=== PATIENT | female | born 1945 | race Caucasian/White ===

== ENCOUNTER → 2017-08-20 | Outpatient (CLI) | payer OTHER ==
[~2017-08-20] MED LIST: ALTACE10 MG PO; ASPIR 8181 MG PO; ATORVASTATIN CA40 MG PO; ATORVASTATIN CA80 MG; CENTRUM SILVER1 EAC4 PO; COLACE100 MG PO; DETROL2 M1 PO; EFFIENT10 MG PO; LASIX 40 MG TAB40 M2 PO; LISINOPRIL5 MG; LOPRESSOR25 PO; NORCO 5-325 TA1 EACH PO; OXYBUTYNIN 5 MG5 M2; OXYBUTYNIN 5 MG5 M2 PO; OXYTROL FOR WO1 EACH; PACERONE 200 M200 M1 PO; PLAVIX; PREDNISONE 20 M20 M1 PO; PROTONIX 20 MG20 M1 PO; TYLENOL325 MG PO; VITAMIN D2000 UNIT PO; ZPAK PO
--- NOTE | 2017-08-22 12:13 | S ---
[place] [address] SURGICAL PATH RPT PROCEDURE Name: IMELDA THOMAS Room: [facility]#: [id number] Admission: 08/20/17 Date of : 45 Discharge: Report #: [id number] Path Case #: [id number] PATHOLOGY REPORT COLLECTION DATE: 08/20/2017 RECEIVED DATE: 08/20/2017 SUBMITTING PHYS: Dr. Yohan Cardozo OTHER PHYS: Dr. Clair Logan SPECIMEN(S) RECEIVED: A.Right breast bx * * * * * * * * * * * * FINAL DIAGNOSIS: Right breast mass, 1:00, 6 cm from nipple, image guided biopsy: - Benign breast tissue with organizing hematoma and coarse lumenal calcifications, negative for atypia. See comment. COMMENT: Reviewed with Dr. Aaron Hinkle, who agrees with the diagnosis. (ONEL:david; 08/21/2017) PATHOLOGIST: Juan Osullivan M.D. REPORT ELECTRONICALLY SIGNED BY: Juan Osullivan M.D. DATE/TIME: 08/22/2017 12:12 * * * * * * * * * * * * GROSS PATHOLOGY: Received in formalin labeled "Imelda Thomas, right breast BX 1:00, 6 cm from nipple" and consists of a few soft, yellow, orange, and hemorrhagic tissue cores/fragments measuring 2.5 x 2.0 x 0.4 cm and aggregate. The cold ischemic time is 7 minutes. The formalin fixation time is approximately 11 hours. The specimen is entirely submitted A1-A3. (GUNJAN; 08/20/2017) CLINICAL HISTORY: Right breast mass, 1:00, 6 cm from nipple, 0.77 x 0.53 x 0.47. INITIAL CPT CODE(S): A; 56017 Professional services performed by [facility] at [facility], [address] [place] [id number]. Technical services performed by [facility] at [address] [place] [address], [facility] [address] [address]. [place] [address] SURGICAL PATH RPT PROCEDURE Name: IMELDA THOMAS Room: [facility] Johnston#: [id number] Admission: 08/20/17 Date of : 45 Discharge: Report #: [id number] Path Case #: [id number] [facility] [address] [address] PHONE: [phone] DIRECTOR: Oswald Padgett M.D. * * * END OF REPORT * * *
== END | disposition home or self-care (01) ==
LOC: M.ULTRA 08:02
DX: N64.89 Other specified disorders of breast (principal); I25.2 Old myocardial infarction; Z88.8 Allergy status to other drugs, medicaments and biological substances; Z79.82 Long term (current) use of aspirin

== ENCOUNTER 2017-08-23 16:39 | Emergency (ER) | payer OTHER ==
[~2017-08-23] VITALS: Ht 162.6 cm; Wt 53.5 kg
[~2017-08-23 16:39] MED LIST changes: -CENTRUM SILVER1 EAC4 PO
[2017-08-23] MEDS ORDERED: CENTRUM SILVER1 EAC4 PO (16:51)
[2017-08-23 17:47] VITALS: BP 178/83
== END 2017-08-23 17:48 | disposition home or self-care (01) ==
LOC: M.ERS 16:39
DX: S61.012A Laceration without foreign body of left thumb without damage to nail, initial encounter (principal); I10 Essential (primary) hypertension; K21.9 Gastro-esophageal reflux disease without esophagitis; F17.200 Nicotine dependence, unspecified, uncomplicated; Z90.711 Acquired absence of uterus with remaining cervical stump; Z88.8 Allergy status to other drugs, medicaments and biological substances; W26.0XXA Contact with knife, initial encounter; Y93.89 Activity, other specified; Y92.89 Other specified places as the place of occurrence of the external cause; Y99.8 Other external cause status

== ENCOUNTER → 2018-04-25 | Outpatient (CLI) | payer OTHER ==
[~2018-04-25] MED LIST changes: +CENTRUM SILVER1 EAC4 PO
== END ==
LOC: M.RAD 08:27
DX: M81.0 Age-related osteoporosis without current pathological fracture (principal); M85.89 Other specified disorders of bone density and structure, multiple sites; I10 Essential (primary) hypertension; K21.9 Gastro-esophageal reflux disease without esophagitis; Z78.0 Asymptomatic menopausal state

== ENCOUNTER → 2018-12-11 | Outpatient (CLI) | payer OTHER ==
--- NOTE | 2018-12-11 16:57 | CARDNUC ---
[place] [address] CARDIAC NUCLEAR IMAGING REPORT Name: OLEGARIO BARRETT Room: [facility]#: [id number] Admission: 12/11/18 Attend Phys: Gaston Polanco, Discharge: Date of : 45 Date of Service: 12/11/18 1656 Report #: [id number] THIS REPORT FOR: //name// APPROVED REPORT Study performed: 12/11/2018 09:27:41 Exam: Nuclear Stress Test Indication: Chest pain Patient Location: Out-Patient Stress Tech: Kala Allan Stress Nurse: Renetta Rodríguez RN NM Tech:JOHNATHAN Malik Ht: 5 ft 4 in Wt: 115 lbs BSA: 1.55 m2 BMI: 19.73 Medical History Medical History: Angina, CAD s/p DC, CAD s/p stent, HTN, Hyperlipidemia, Smoking. Medications: Lisinopril, Metoprolol, Atorvastatin, ASA 81 Mg. Allergies: Lidocaine, Milk Protein, Pravastatin, Varenicline. Cardiac Risk Factors: Age, Current Smoker, FHX of CAD, HTN, Hyperlipidemia. Previous Cardiac Procedures: Myocardial infarction, PCI. Pretest Chest Pain Characteristics: No chest pain Exercise History: Indeterminate Physical Disabilities: Generalized weakness/Fatigue. Meds Held (24 hrs): Metoprolol. Stress Test Details Stress Test: Pharmacologic stress was paired with low level exercise. Reason for pharmacologic stress test: physical limitation.. HR Resting HR: 55 bpm Max Heart Rate (APMHR): 147 bpm Max HR Achieved: 130 bpm Target HR (85% APMHR): 124 bpm % of APMHR: 88 Recovery HR: 78 bpm BP Resting BP: 174/89 mmHg Max BP: 190/81 [place] [address] CARDIAC NUCLEAR IMAGING REPORT Name: OLEGARIO BARRETT Room: [facility]#: [id number] Admission: 12/11/18 Attend Phys: Gaston Polanco, Discharge: Date of : 45 Date of Service: 12/11/18 1656 Report #: [id number] ECG Resting ECG: Sinus Rhythm Stress ECG: Sinus Tachycardia ST Change: None Arrhythmia: None Recovery ECG: Sinus Rhythm Recovery ST Change: None Recovery Arrhythmia: None Clinical Reason for Termination: Completed protocol Stress Symptoms: Dyspnea Exercise duration: 4 min 00 sec Exercise capacity: 2.07 METs The patient tolerated walking Lexiscan infusion without significant cardiac symptoms. Nurse Comments 73 year old female presented with HX of CP radiating into neck. Patient tolerated walking Lexiscan with SOA reported. Recovery unremarkable with PO caffeine. Patient escorted by staff to Nuclear Medicine for images. Patient stable with no complaints at that time. Stress ECG Conclusion The baseline 12-lead EKG shows sinus rhythm without significant ST or T wave abnormality. EKGs obtained during and post walking Lexiscan perfusion show sinus rhythm and sinus tachycardia with no significant ST or T wave changes when compared to baseline. There were no stress-induced arrhythmias. NM EXAM: Myocardial Perfusion REST/STRESS Imaging Protocol: Rest Tc-99m/Stress Tc-99m 1 day Resting Data Rest SPECT myocardial perfusion imaging was performed in supine position 30 minutes following the intravenous injection of 10.3 mCi of Tc-99m Sestamibi. Time of rest injection: 814 Date: 12/11/2018 The images were gated to evaluate regional wall motion and calculate left ventricular ejection fraction. Administration Route: IV Administration Site: Right [place] [address] CARDIAC NUCLEAR IMAGING REPORT Name: OLEGARIO BARRETT Room: [facility]#: [id number] Admission: 12/11/18 Attend Phys: Gaston Polanco, Discharge: Date of : 45 Date of Service: 12/11/18 1656 Report #: [id number] Pharmacologic stress test was performed by injecting Regadenoson 0.4 mg IV push followed by the intravenous injection of 35.6 mCi of Tc-99m Sestamibi. Time of stress injection: 929 Date: 12/11/2018 Administration Route: IV Administration Site: Right AC Gated Stress SPECT was performed 40 minutes after stress injection. The images were gated to evaluate regional wall motion and calculate left ventricular ejection fraction. Prone imaging was performed. Study Quality Study: Fair Artifact: Moderate Breast artifact Study Data At rest, the left ventricular ejection fraction was 64%.. Post stress, the left ventricular ejection was 61%.. TID = 0.94. Perfusion Perfusion images obtained at rest show significant photopenia involving the mid to apical lateral inferolateral wall. Perfusion images obtained in the supine position post stress show a similar less pronounced pattern that is even less pronounced on post stress prone imaging. Wall motion in this region appears normal suggesting breast attenuation artifact. There were no reversible defects to suggest ischemia. Wall Motion Normal left ventricular wall motion. Nuclear Conclusion ECG Findings: negative for ischemia Clinical Findings: negative for ischemia Nuclear Findings: negative for ischemia Exercise Capacity: not assessed Left Ventricular Function: normal There were no reversible defects to suggest ischemia. There were fixed defects in the mid to apical lateral and inferolateral wall with underlying normal wall motion in this region suggesting breast attenuation artifact. Left ventricular systolic function is normal on gated studies. This is not a high risk study. <Conclusion> [place] [address] CARDIAC NUCLEAR IMAGING REPORT Name: NENAOLEGARIO AXEL Room: [facility]#: [id number] Admission: 12/11/18 Attend Phys: Gaston Polanco, Discharge: Date of : 45 Date of Service: 12/11/18 1656 Report #: [id number] The baseline 12-lead EKG shows sinus rhythm without significant ST or T wave abnormality. EKGs obtained during and post walking Lexiscan perfusion show sinus rhythm and sinus tachycardia with no significant ST or T wave changes when compared to baseline. There were no stress-induced arrhythmias. <ELECTRONICALLY SIGNED> By: Gaston Polanco MD, FACC 12/11/18 1656 55 55 Gaston Polanco MD, FACC /INF
== END ==
LOC: M.NUC 11-13 14:32
DX: I25.10 Atherosclerotic heart disease of native coronary artery without angina pectoris (principal); I10 Essential (primary) hypertension; E78.5 Hyperlipidemia, unspecified; F17.200 Nicotine dependence, unspecified, uncomplicated; Z88.8 Allergy status to other drugs, medicaments and biological substances; Z91.011 Allergy to milk products; Z79.899 Other long term (current) drug therapy; Z82.49 Family history of ischemic heart disease and other diseases of the circulatory system

== ENCOUNTER 2019-01-19 13:14 | Emergency (ER) | payer OTHER ==
[~2019-01-19] VITALS: Ht 165.1 cm; Wt 51.3 kg
[~2019-01-19 13:14] MED LIST changes: -LISINOPRIL5 MG; +LISINOPRIL5 MG PO
[2019-01-19] MEDS ORDERED: COLACE 100 MG100 MG PO (13:46)
[2019-01-19] MEDS ORDERED: TRAMADOL 50 MG50 MG PO (13:46)
[2019-01-19 13:57] VITALS: BP 176/66
== END 2019-01-19 13:59 | disposition home or self-care (01) ==
LOC: M.ERS 13:14
DX: K40.90 Unilateral inguinal hernia, without obstruction or gangrene, not specified as recurrent (principal); I10 Essential (primary) hypertension; K21.9 Gastro-esophageal reflux disease without esophagitis; Z88.8 Allergy status to other drugs, medicaments and biological substances; Z90.711 Acquired absence of uterus with remaining cervical stump

== ENCOUNTER → 2019-02-03 | Day surgery (SDC) | payer OTHER ==
[~2019-02-03] MED LIST changes: +COLACE 100 MG100 MG PO; +NORCO 5-325 TA1 EAC1 PO; +TRAMADOL 50 MG50 MG PO
[2019-02-03 10:00] LABS: HEMATOCRIT 45.5 % (37.0-47.0); HEMOGLOBIN 15.3 gm/dL (12.0-15.0); MCH 31.5 pg (26.0-34.0); MCHC 33.7 g/dL (28.0-37.0); MCV 93.3 fL (80.0-100.0); MPV 9.5 fl. (7.2-11.1); RBC 4.88 mil/uL (4.20-5.00); RDW-CV 13.3 % (10.5-14.5); WBC 9.7 thou/uL (4.0-11.0)
[2019-02-03 10:20] LABS: CALCIUM 9.5 mg/dL (8.5-10.1); CREATININE 0.7 mg/dL (0.6-1.3); POTASSIUM 4.5 mmol/L (3.5-5.1)
--- NOTE | 2019-02-03 11:06 | EKG ---
[place] [address] ELECTROCARDIOGRAM REPORT Name: OLEGARIO BARRETT Room: [facility]#: [id number] Admission: 02/03/19 Attend Phys: Nima Cuellar DO Discharge: Date of : 45 Report #: [id number] THIS REPORT FOR: //name// 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 02/03/19 [phone] Shaji Ford MD, FACC /EPI
--- NOTE | 2019-03-04 08:54 | OP ---
[address] [address] OPERATIVE REPORT Name: OLEGARIO BARRETT Room: [facility]#: [id number] Admission: 02/03/19 Attend Phys: Nima Cuellar DO Discharge: Date of : 45 Report #: [id number] THIS REPORT FOR: //name// CC: Nima Tolbert DATE OF SERVICE: 02/03/2019 PREOPERATIVE DIAGNOSIS: Left inguinal hernia. POSTOPERATIVE DIAGNOSIS: Left inguinal hernia, indirect. PROCEDURE: Da Trish robotic-assisted laparoscopic left inguinal hernia repair with mesh. SURGEON: Nima Cuellar DO. COTTRELL OPERATOR: Dr. Uriel Coyle DO, PGY3, resident. SECOND TOOL ROOM SUPERVISOR: Dr. Barrington Quesada DO, PGY3, resident. ANESTHESIA: General endotracheal. ESTIMATED BLOOD LOSS: Less than 20 mL. COMPLICATIONS: None. REFERRING PHYSICIAN: Dr. Clair Logan. DESCRIPTION OF PROCEDURE: After obtaining proper consents and discussing risks and complications with the patient, she was taken to the operating room and laid in the supine position, administered general endotracheal anesthetic. She was then prepped and draped in the usual sterile fashion. Timeout was performed. We confirmed the appropriate patient and procedure. Preoperative antibiotics had been given. SCDs were in place. We then made a small supraumbilical skin incision with a #11 scalpel blade. This was carried down through the skin and the subcutaneous tissue using electrocautery for hemostasis. Once the fascia was encountered, it was incised along the midline, grasped and elevated with Ginna clamps and divided further. The peritoneum was then bluntly opened using a hemostat. We then placed 2-0 Vicryl sutures in a taqafh-za-[id number] fashion to secure the Delroy trocar, which was then inserted and insufflation was begun. Once insufflation was complete, full visual inspection of the anterior abdominal organs was performed. This revealed a left indirect inguinal hernia. There was no right indirect inguinal hernia. We also looked up at the diaphragm as the patient had had a previous hiatal hernia repair. [place] [address] OPERATIVE REPORT Name: OLEGARIO BARRETT Room: [facility].#: [id number] Admission: 02/03/19 Attend Phys: Nima Cuellar DO Discharge: Date of : 45 Report #: [id number] abnormalities identified there. We then placed two more 8.5 mm da Trish ports, one in the right upper quadrant, one in the left upper quadrant. We then docked the da Trish robot. We then placed monopolar scissors in the right upper quadrant, bipolar fenestrated grasper in the left upper quadrant. I then broke scrub and went on console. Once on console, I identified ASIS on the patient's left side. I then made an opening in the peritoneum from the median umbilical ligament laterally to the ASIS. I then bluntly opened the preperitoneal space and dissected the indirect inguinal hernia sac free from the round ligament. Once the preperitoneal space was developed all the way medially down below the pubic ramus and laterally out to the ASIS, I then placed a medium Bard 3DMax mesh. This was opened in its entirety in the preperitoneal space and then sutured to Colton's ligament using 2-0 Vicryl suture. I also sutured the mesh medial and lateral to the inferior epigastric vessels using 2-0 Vicryl suture. We then closed the peritoneal flap using a running 2-0 absorbable V-Loc suture. We then removed all of the needles. I then rescrubbed and went back to the patient's bedside where we undocked the da Trish robot. The trocars were all removed. PMI closure device was used to close the right and left upper quadrant trocar sites with 0 Vicryl suture. We then closed the umbilical fascia using the 2 previously placed 0 Vicryl sutures plus 2 additional 0 Vicryl sutures. Skin incisions were all closed using 4-0 Monocryl subcuticular stitches. Mastisol, Steri-Strips, sterile OpSite and pressure dressings were placed. The patient was awakened in the operating room and transported to recovery room in stable condition. <ELECTRONICALLY SIGNED> By: Nima Cuellar DO 03/04/19 0854 1248 1334Aelinor Cuellar DO /nt
== END | disposition home or self-care (01) ==
LOC: M.SUR 06:32
PROVIDERS: Surgery
DX: K40.90 Unilateral inguinal hernia, without obstruction or gangrene, not specified as recurrent (principal); I10 Essential (primary) hypertension; I25.2 Old myocardial infarction; K21.9 Gastro-esophageal reflux disease without esophagitis; Z88.8 Allergy status to other drugs, medicaments and biological substances; Z79.82 Long term (current) use of aspirin; Z79.899 Other long term (current) drug therapy; Z98.890 Other specified postprocedural states; Z90.711 Acquired absence of uterus with remaining cervical stump

== ENCOUNTER 2019-04-11 07:30 | Observation (INO) | payer OTHER ==
[~2019-04-11] VITALS: Ht 162.6 cm; Wt 49.9 kg
[2019-04-11] VITALS (14 sets, daily range): BP systolic 141–180; BP diastolic 60–84
--- NOTE | ~2019-04-11 | H ---
[address] [address] HISTORY AND PHYSICAL Name: OLEGAIRO BARRETT Room: [address] Angel Johnston#: [id number] Admission: 04/11/19 Attend Phys: Kodak Lind MD, Discharge: 04/12/19 Date of : 45 Report #: [id number] THIS REPORT FOR: //name// Please refer to the History and Physical performed in the physician's office. By: 0635Medical Records Staff RADHA /TEODORO
[~2019-04-11 07:30] MED LIST changes: -ATORVASTATIN CA80 MG; +ATORVASTATIN CA80 MG PO; -OXYBUTYNIN 5 MG5 M2
[2019-04-11 08:32] LABS: HEMATOCRIT 42.3 % (37.0-47.0); HEMOGLOBIN 14.6 gm/dL (12.0-15.0); MCH 31.9 pg (26.0-34.0); MCHC 34.5 g/dL (28.0-37.0); MCV 92.4 fL (80.0-100.0); MPV 9.7 fl. (7.2-11.1); RBC 4.58 mil/uL (4.20-5.00); RDW-CV 13.4 % (10.5-14.5); WBC 8.3 thou/uL (4.0-11.0)
[2019-04-11] MEDS ORDERED: XALATAN2.5 ML INTRAOCULR (08:36)
[2019-04-11 08:43] LABS: APTT 24.9 Seconds (25.0-31.3); PROTIME 10.5 Seconds (9.20-11.50)
[2019-04-11 09:08] LABS: ANION GAP 4 mmol/L (7-16); BUN 10 mg/dL (7-18); CALCIUM 9.9 mg/dL (8.5-10.1); CHLORIDE 102 mmol/L (98-107); CO2 32 mmol/L (21-32); CREATININE 0.7 mg/dL (0.6-1.3); GLUCOSE 77 mg/dL (70-99); SODIUM 138 mmol/L (136-145)
[2019-04-11 09:13] LABS: ALBUMIN 3.9 g/dL (3.4-5.0); ALKALINE PHOSPHATASE 121 U/L (46-116); CHOLESTEROL 117 mg/dL (<200); HDL CHOLESTEROL 57 mg/dL (>40); LDL CHOLESTEROL 44 mg/dL (<100); SGOT 43 U/L (15-37); SGPT 47 U/L (30-65); TC:HDL 2.1 Ratio (Not establshd); TOTAL BILIRUBIN 0.6 mg/dL (<0.1-1.0); TOTAL PROTEIN 7.7 g/dL (6.4-8.2); TRIGLYCERIDE 80 mg/dL (<150); VLDL 16 mg/dL (<40)
[2019-04-11 09:14] LABS: SERUM ASSESSMENT Clear
--- NOTE | 2019-04-11 12:35 | EKG ---
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: : 1945 Requested By: Kodak Lind Order Number: [id number] Reading MD: Kodak Lind Measurements Intervals [place] Rate: 48 P: -37 IN: 157 QRS: -8 QRSD: 86 T: QT: 424 QTc: 379 Interpretive Statements Sinus bradycardia Atrial premature complexes in couplets Inferior infarct, old possible Artifact in lead(s) I,II,aVR,aVL,aVF Compared to ECG 02/03/2019 09:56:46 Atrial premature complex(es) now present heart rate has decreased Electronically Signed On 04-11-2019 12:34:49 CDT by Kodak Lind [email or web address] <ELECTRONICALLY SIGNED> By: Kodak Lind MD, [facility] 04/11/19 1234 0843 0843 Kodak Lind MD, [facility] /EPI
--- NOTE | 2019-04-11 12:35 | EKG ---
[place] [address] ELECTROCARDIOGRAM REPORT Name: OLEGARIO BARRETT Room: [address] M.R.#: [id number] Admission: 04/11/19 Attend Phys: Kodak Lind MD, Discharge: Date of : 45 Report #: [id number] THIS REPORT FOR: //name// 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: : 1945 Requested By: Kodak Lind Order Number: [id number] Clementina MD: Kodak Lind Measurements Intervals [place] Rate: 51 P: -18 [place]: 146 QRS: -14 QRSD: 86 T: 54 QT: 433 QTc: 399 Interpretive Statements Sinus rhythm Ventricular premature complex Consider left ventricular hypertrophy Anterior ST elevation, probably due to LVH Compared to ECG 02/03/2019 09:56:46 Ventricular premature complex(es) now present Left ventricular hypertrophy now present ST (T wave) deviation now present Sinus arrhythmia no longer present Atrial abnormality no longer present Electronically Signed On 04-11-2019 12:35:32 CDT by Kodak Lind [email or web address] <ELECTRONICALLY SIGNED> By: Kodak Lind MD, FAC 04/11/19 1235 1152 1152 Kodak Lind MD, FAC /EPI
--- NOTE | 2019-04-11 16:20 | CARD ---
[address] [address] CARDIAC CATH REPORT Name: OLEGARIO BARRETT Room: [address] Angel M.RKaren#: [id number] Admission: 04/11/19 Attend Phys: Kodak Lind MD, Discharge: Date of : 45 Report #: [id number] THIS REPORT FOR: //name// APPROVED REPORT Study performed: 04/11/2019 08:10:00 Patient Details The patient is a 73 year-old female Event Personnel Kodak Lind Product Development Specialist, Winnie Moe Nursing Associate, Zaki Flower CLINICAL INFORMATICS DIRECTOR Scrub, Radha Song RTR Monitor, Yolanda Cuellar RTR Scrub Procedures Performed Art Access - R femoral artery* Left Heart Cath w/or w/o Coronaries [id number] [facility] w/Atherectomy Single LAD [id number] [facility] , Aortogram Indication Unstable angina Risk Factors Hypercholesterolemia, Hypertension Previous Procedures/Diagnoses Previous PCI, Previous MT Admission/Lab Medications/Medications given during procedure Oxygen Nasal cannula 2 l per min, Midazolam (Versed) IV 1 mg, Fentanyl IV 25 mcg, Lidocaine Subcut 16 ml, Angiomax IV bolus 7.5 mg per kg, Angiomax IV gtt 17 ml, Nitroglycerin IC 400 mcg total, Hydralazine (Apresoline) IV 10 mg, Ticagrelor PO 180 mg, Aspirin PO 162 mg Procedure Narrative The patient was brought electively to the Cardiac Catheterization Laboratory and was prepped and draped in a sterile manner. The right femoral was infiltrated with 2% Lidocaine subcutaneous anesthesia. A [place] 6 FR sheath was inserted into the right femoral artery. Coronary angiography was performed using coronary diagnostic catheters. The right coronary system was accessed and visualized with a 6F JR4 catheter. The left coronary system was accessed and visualized with a 6F JL4 catheter. The [place] [address] CARDIAC CATH REPORT Name: OLEGARIO BARRETT AXEL Room: [address] M.R.#: [id number] Admission: 04/11/19 Attend Phys: Kodak Lind MD, Discharge: Date of : 45 Report #: [id number] and visualized with a 6F Pigtail catheter. Left ventricular/Aortic Valve gradient assessed via catheter pullback. Left ventriculogram was performed in ZUÑIGA projection. Pre-demployment femoral angiogram was performed . Closure device was deployed with a 6 Fr Mynx 6Fr/7Fr. The patient tolerated the procedure well and there were no complications associated with the procedure. There was no hematoma. Intraoperative Conscious Sedation Sedation start time: 09:41 Case end Time: 11:12 Fentanyl 25 mcg Versed 1 mg Fluoro Time: 24.4 minutes Dose: DAP [id number] cGycm2 2513 mGy Contrast Type and Amount: Visipaque 520 ml Coronary Angiography The patient's coronary anatomy is left dominant. Diagnostic Cath Left Main 0 Percent narrowing LAD 90% heavily calcified proximal LAD stenosis with 80% calcified mid LAD stenosis and 50% diffuse distal LAD narrowing Circumflex Dominant vessel with 80% mid vessel narrowing and 50% tubular narrowing throughout the posterior descending branch Right Coronary Small nondominant vessel with 90% tubular mid vessel narrowing Left Ventriculography The left ventricle is normal in size with contractility. The left ventricular ejection fraction is estimated to be 55%. Left ventricular wall motion abnormalities are present. There is no mitral insufficiency. Inferoapical hypokinesis is noted IVUS Anticoagulation was achieved with . Angiomax Intravascular Ultrasound was performed on the proximal left anterior descending artery segment vessel. Fractional Flow [place] was performed on the 90 vessel. A 3 Guide Catheter was used to engage the 6FR XB 3.5 100CM ostium. A IG: BMW 190cm was used. Hemodynamics The aortic pressure is 167/56 mmHg with a mean of 96 [place] [address] CARDIAC CATH REPORT Name: OLEGARIO BARRETT Room: [address]#: [id number] Admission: 04/11/19 Attend Phys: Kodak Lind MD, Discharge: Date of : 45 Report #: [id number] ventricular pressure is 163/-2 mmHg with a mean of mmHg. The left ventricular end diastolic pressure is 16 mmHg. There was no gradient across the aortic valve upon pullback. PCI Technique Lesion Anticoagulation was achieved with Angiomax. Patient was preloaded with Angiomax IV 7.5 mg per kg. Percutaneous coronary intervention was performed on the mid left anterior descending artery segment. The lesion stenosis prior to intervention was 80% with ELISEO 3 flow. A 6FR XB 3.5 100CM Guide Catheter was used to engage the ostium. A IG: BMW 190cm Interventional Guidewire was used to cross the lesion. BALLOON DILATION A Balloon catheter NC Trek RX 2.5 X 12 was inserted and inflated up to 16atm for 9seconds. Additional Inflation: 18atm for 9seconds. A Balloon catheter NC Trek RX 2.75 x 8 was inserted and inflated up to 18 jeimy and 22 jeimy. A Balloon catheter NC Trek RX 3.0 x 8 was inserted and inflated up to 17 jeimy and 19 jeimy. STENT DEPLOYMENT A drug-eluting stent 2.5 x 13 Orsiro was inserted and inflated up to 12atm for 9seconds. Additional Inflation: 14atm for 9seconds. POST STENT DEPLOYMENT BALLOON DILATION A Balloon catheter NC Trek RX 2.75 X 8 was inserted and inflated up to 24atm for 9seconds. A Balloon catheter NC Trek RX 3.0 X 8 was inserted and inflated up to 17 jeimy and 18 jeimy. Final angiography reveals 10 % stenosis with ELISEO 3 flow. COMMENTS The PCI was complex by virtue of severe calcification throughout the LAD system requiring significant lesion preparation prior to stent deployment in the proximal and mid LAD segments PCI Technique Lesion Anticoagulation was achieved with Angiomax. Patient was preloaded with Angiomax IV 7.5 mg per kg. Percutaneous coronary intervention was performed on the proximal left anterior descending artery segment. The lesion stenosis prior to intervention was 90% with ELISEO 3 flow. A 6FR XB 3.5 100CM Guide Catheter was used to engage the ostium. A IG: BMW 190cm Interventional Guidewire was used to cross the lesion. BALLOON DILATION [address] [address] CARDIAC CATH REPORT Name: OLEGARIO BARRETT Room: [address] Vickie#: [id number] Admission: 04/11/19 Attend Phys: Kodak Lind MD, Discharge: Date of : 45 Report #: [id number] A Balloon catheter was inserted and inflated up to 20atm for 9seconds. Additional Inflation: 18atm for 9seconds. A balloon catheter NC Trek RX 2.75 x 8 was inserted and inflated up to 22 jeimy. A balloon catheter AngioSculpt PTCA 2.5x 10 was inserted and inflated up to 18 jeimy and 20 jeimy. A balloon catheter NC Trek RX 3.0 X 8 was inserted and inflated up to 18 jeimy. STENT DEPLOYMENT A drug-eluting stent 3.0 x 13 Orsiro was inserted and inflated up to 12atm for 9seconds. Additional Inflation: 14atm for 9seconds. POST STENT DEPLOYMENT BALLOON DILATION A Balloon catheter NC Trek RX 3.0 X 8 was inserted and inflated up to 20atm for 9seconds. Final angiography reveals 0 % stenosis with ELISEO 3 flow. Conclusion #1 severe coronary disease characterized by the following: A 90% heavily calcified proximal and 80% heavily calcified mid LAD stenosis B 80% stenosis of the midportion of the nondominant circumflex with 50% diffuse posterior descending branch narrowing C nondominant right coronary artery with 90% mid vessel narrowing #2 normal global left ventricular systolic function, estimate ejection fraction being 55% with inferoapical hypokinesis #3 mild systemic systolic hypertension with mild elevation of left ventricular end-diastolic pressure at rest #4 successful angioplasty atherotomy/atherectomy and stenting of the proximal LAD with 0% residual narrowing #5 successful angioplasty with stenting of the mid LAD with 10% residual narrowing Recommendations Cardiac Risk Reduction Program Aggressive Medical Therapy Medications Administered [facility] [address] [place] [address] CARDIAC CATH REPORT Name: OLEGARIO BARRETT Room: [address] M.R.#: [id number] Admission: 04/11/19 Attend Phys: Kodak Lind MD, Discharge: Date of : 45 Report #: [id number] Aspirin (any) Ticagrelor Diagnostic Cath Approved by: Kodak Lind MD Date/Time: 04/11/2019 16:15:00 <ELECTRONICALLY SIGNED> By: Kodak Lind MD, FACC 04/11/19 1619 1619 1619Kodak Lind MD, FACC /INF
--- NOTE | 2019-04-11 18:30 | NUR ---
PT A/O. TELE TRACKING SB (40'S-50'S) AND ALL VSS ON ROOM AIR. DENIES CP, SOA. RIGHT GROIN DRESSING CDI, NO HEMATOMA. NEURO VASC WNL. EDUCATED ON SAFETY AND PLAN OF CARE. PLEASE SEE ASSESSMENT FOR ADDITIONAL INFORMATION. WILL CONT TO MONITOR
[2019-04-12] VITALS: BP 170/70
[2019-04-12 04:00] VITALS: BP 199/77
[2019-04-12 05:37] LABS: HEMATOCRIT 37.6 % (37.0-47.0); HEMOGLOBIN 12.8 gm/dL (12.0-15.0); MCH 31.4 pg (26.0-34.0); MCHC 34.1 g/dL (28.0-37.0); MCV 92.1 fL (80.0-100.0); MPV 9.9 fl. (7.2-11.1); RBC 4.08 mil/uL (4.20-5.00); RDW-CV 13.7 % (10.5-14.5)
[2019-04-12 05:51] LABS: ALBUMIN 3.2 g/dL (3.4-5.0); CALCIUM 8.5 mg/dL (8.5-10.1); CREATININE 0.6 mg/dL (0.6-1.3); POTASSIUM 3.6 mmol/L (3.5-5.1); TOTAL BILIRUBIN 0.9 mg/dL (<0.1-1.0); TOTAL PROTEIN 6.3 g/dL (6.4-8.2)
[2019-04-12 05:55] LABS: TROPONIN-I LEVEL 1.94 ng/mL (<0.06)
--- NOTE | 2019-04-12 06:21 | NUR ---
ASSESSMENT CHARTED. PATIENT BP ELEVATED OVER 190. CONTACTED DR. FORBES AND ORDERS RECEIVED FOR BP MEDICATION. ADMINISTERED PER ORDER. PATIENT ANXIOUS TO BE DISCHARGED IN AM.
[2019-04-12 08:00] VITALS: BP 159/75
[2019-04-12 10:42] VITALS: BP 159/75
[2019-04-12] MEDS ORDERED: BRILINTA90 MG PO (11:10)
--- NOTE | 2019-04-12 12:46 | D ---
[address] [address] DISCHARGE SUMMARY Name: OLEGARIO BARRETT Room: [address] Angel Johnston#: [id number] Admission: 04/11/19 Attend Phys: Kodak Lind MD, Discharge: 04/12/19 Date of : 45 Report #: [id number] THIS REPORT FOR: //name// CC: Kodak Polanco FINAL DISCHARGE DIAGNOSES: 1. Unstable angina. 2. Coronary artery disease. 3. Hypertension. 4. Hyperlipidemia. 5. Status post percutaneous coronary intervention to the proximal and mid left anterior descending with atherectomy and stenting of the proximal left anterior descending and stenting of the mid left anterior descending. HOSPITAL COURSE: The patient is a pleasant 73-year-old female with a history of coronary artery disease and prior myocardial infarction and stenting. She presented to my nurse practitioner with increasing angina following an unstable course. In this context, I performed cardiac catheterization on 04/11/2019 which revealed 90% heavily calcified proximal LAD stenosis with 80% calcified mid LAD stenosis. There was 80% mid circumflex narrowing noted as well but the right was nondominant with 90% mid vessel narrowing. I performed atherectomy with stenting of the proximal LAD, deploying one 3.0 x 13 mm Osiro drug-eluting stent there and one 2.5 x 13 Osiro drug-eluting stent in the mid LAD with 0 and 10% residual narrowing following stent deployment and ELISEO 3 flow of the distal vessel. Following atherectomy and stenting, there was a minimal increase in troponin I to 1.94. The patient was comfortable and pain free. She ambulated in the hallways without difficulty and there was good hemostasis at the right femoral site of catheterization. LABORATORY DATA: On 04/12/2019 revealed hemoglobin of 12.8, white blood cell count of 10,000 with 160,000 platelets. Sodium 140, potassium 3.6, BUN 7, creatinine 0.6, glucose 95 mg percent. DISCHARGE MEDICATIONS: The patient was discharged to home on the following medications: Aspirin 81 mg daily, atorvastatin 80 mg daily, cholecalciferol 2000 units daily, Xalatan eyedrops 1 drop at bedtime bilaterally, lisinopril 10 mg b.i.d., metoprolol tartrate 12.5 mg b.i.d., Centrum Silver 1 tablet daily, oxybutynin chloride 5 mg daily, hydrocodone/acetaminophen 1 tablet every 4 hours as needed for musculoskeletal pain, and as noted above, lisinopril increased to 10 mg b.i.d. She is also on ticagrelor or Brilinta 90 mg b.i.d. with 180 mg dose given periprocedurally. The patient is scheduled to return to see my nurse practitioner on 04/21/2019 at 10:30 and she will need stage intervention to the 80% mid circumflex lesion [place] [address] DISCHARGE SUMMARY Name: OLEGARIO BARRETT Room: [address] Angel Johnston#: [id number] Admission: 04/11/19 Attend Phys: Kodak Lind MD, Discharge: 04/12/19 Date of : 45 Report #: [id number] Therefore, the patient is discharged to home in stable condition with followup as iterated above. <ELECTRONICALLY SIGNED> By: Kodak Lind MD, FACC 04/12/19 1246 0955 [id number] Lind MD, FAC /nt
== END 2019-04-12 11:46 | disposition home or self-care (01) ==
LOC: M.CL 07:30 → M.TBA-CV 11:44 → M.2W 15:07
PROVIDERS: ADMIT Internal Medicine
DX: I25.110 Atherosclerotic heart disease of native coronary artery with unstable angina pectoris (principal); I10 Essential (primary) hypertension; E78.5 Hyperlipidemia, unspecified

== ENCOUNTER 2019-05-08 07:23 | Observation (INO) | payer OTHER ==
[2019-05-08] VITALS (12 sets, daily range): BP systolic 142–163; BP diastolic 58–69
[~2019-05-08] VITALS: Ht 162.6 cm; Wt 57.2 kg
--- NOTE | ~2019-05-08 | H ---
[address] [address] HISTORY AND PHYSICAL Name: NENAOLEGARIO AXEL Room: [address] Angel Johnston#: [id number] Admission: 05/08/19 Attend Phys: Kodak Lind MD, Discharge: 05/09/19 Date of : 45 Report #: [id number] THIS REPORT FOR: //name// For History and Physical please refer to the handwritten note in the patient's medical record. By: [facility] Center[facility] Staff RADHA /TEODORO
[~2019-05-08 07:23] MED LIST changes: +BRILINTA90 MG PO; +XALATAN2.5 ML INTRAOCULR
[2019-05-08 08:17] LABS: HEMATOCRIT 41.1 % (37.0-47.0); MCH 31.9 pg (26.0-34.0); MCHC 34.1 g/dL (28.0-37.0); MCV 93.6 fL (80.0-100.0); MPV 9.7 fl. (7.2-11.1); RBC 4.39 mil/uL (4.20-5.00); RDW-CV 13.5 % (10.5-14.5); WBC 7.4 thou/uL (4.0-11.0)
[2019-05-08 08:29] LABS: ANION GAP 8 mmol/L (7-16); BUN 14 mg/dL (7-18); CALCIUM 9.8 mg/dL (8.5-10.1); CHLORIDE 104 mmol/L (98-107); CO2 29 mmol/L (21-32); CREATININE 0.8 mg/dL (0.6-1.3); GLUCOSE 97 mg/dL (70-99); POTASSIUM 3.7 mmol/L (3.5-5.1); SODIUM 141 mmol/L (136-145)
[2019-05-08 08:31] LABS: APTT 24.1 Seconds (25.0-31.3); INR 1.1; PROTIME 10.8 Seconds (9.20-11.50)
[2019-05-08 08:34] LABS: ALBUMIN 3.9 g/dL (3.4-5.0); ALKALINE PHOSPHATASE 104 U/L (46-116); CHOLESTEROL 116 mg/dL (<200); HDL CHOLESTEROL 56 mg/dL (>40); LDL CHOLESTEROL 44 mg/dL (<100); SGOT 42 U/L (15-37); SGPT 46 U/L (30-65); TC:HDL 2.1 Ratio (Not establshd); TOTAL BILIRUBIN 0.7 mg/dL (<0.1-1.0); TOTAL PROTEIN 7.6 g/dL (6.4-8.2); TRIGLYCERIDE 80 mg/dL (<150); VLDL 16 mg/dL (<40)
[2019-05-08 08:36] LABS: SERUM ASSESSMENT Clear
--- NOTE | 2019-05-08 13:25 | EKG ---
[place] [address] ELECTROCARDIOGRAM REPORT Name: OLEGARIO BARRETT Room: [address] M.R.#: [id number] Admission: 05/08/19 Attend Phys: Kodak Lind MD, Discharge: Date of : 45 Report #: [id number] THIS REPORT FOR: //name// [facility] Test Date: 2019-05-08 Test Time: 08:19:30 Pat Name: OLEGARIO BARRETT Department: Room: [facility] Gender: F Care Director: : 1945 Requested By: Kodak Lind Order Number: [id number] Reading MD: Gaston Polanco Measurements Intervals [place] Rate: 46 P: 17 OR: 167 QRS: -14 QRSD: 96 T: 69 QT: 445 QTc: 390 Interpretive Statements Sinus bradycardia Possible anteroseptal infarct, recent Baseline wander in lead(s) I,II,aVR,aVF Nonspecific T-wave flattening Compared to ECG 04/11/2019 11:52:15 Myocardial infarct finding now present Sinus rhythm no longer present Ventricular premature complex(es) no longer present Left ventricular hypertrophy no longer present Electronically Signed On 05-08-2019 13:24:50 CDT by Gaston Polanco [email or web address] <ELECTRONICALLY SIGNED> By: Gaston Polanco MD, FACC 05/08/19 1324 8 8 Gaston Polanco MD, FACC /EPI
--- NOTE | 2019-05-08 16:17 | EKG ---
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 Room: : 1945 Requested By: Kodak Lind Order Number: [id number] Reading MD: Kodak Lind Measurements Intervals [place] Rate: 51 P: 27 ND: 178 QRS: -31 QRSD: 83 T: 73 QT: 470 QTc: 433 Interpretive Statements Sinus rhythm Ventricular premature complex Probable left atrial enlargement Left ventricular hypertrophy Inferior infarct, old Anterior Q waves, possibly due to LVH Compared to ECG 05/08/2019 08:19:30 Ventricular premature complex(es) now present Left ventricular hypertrophy now present Q waves now present Sinus bradycardia persists T-wave abnormality no longer present Myocardial infarct finding still present Electronically Signed On 05-08-2019 16:16:45 CDT by Kodak Lind [email or web address] <ELECTRONICALLY SIGNED> By: Kodak Lind MD, FACC 05/08/19 1616 1215 121 Kodak Lind MD, [facility] /EPI
--- NOTE | 2019-05-08 18:13 | NUR ---
RECIEVED REPORT FROM PASTRY CHEF. [facility] APPROX 1225. POST CATH SITE AND VITALS MONITORED Q15MIN X4, THEN Q1H X4. PT HAS NO VISABLE BLEEDING AT SITE. SITE IS SOFT, NO VISABLE HEMATOMA PRESENT. PT IS ON BEDREST. PT USED THE BEDPAN. PT EDUCATION GIVEN ABOUT POST CATH CARE. PT VERBALIZED UNDERSTANDING. PTS WAS AT BEDSIDE. SAFTEY PRECAUTIONS IN PLACE, HOURLY ROUNDING. CALL LIGHT WITHIN REACH.
--- NOTE | 2019-05-08 21:00 | NUR ---
PT DRESSING AT PROCEDURE SITE (RIGHT GROIN) IS CDI, FREE OF PAIN AND NO DRAINAGE NOTED. WILL CONTINUE TO MONITOR
[2019-05-09] VITALS: BP 154/72
[2019-05-09 03:52] LABS: HEMATOCRIT 36.5 % (37.0-47.0); HEMOGLOBIN 12.4 gm/dL (12.0-15.0); MCH 31.4 pg (26.0-34.0); MCV 92.5 fL (80.0-100.0); MPV 9.6 fl. (7.2-11.1); RBC 3.94 mil/uL (4.20-5.00); RDW-CV 13.8 % (10.5-14.5); WBC 9.1 thou/uL (4.0-11.0)
[2019-05-09 04:00] VITALS: BP 147/68
[2019-05-09 04:02] LABS: ALBUMIN 3.2 g/dL (3.4-5.0); CREATININE 0.6 mg/dL (0.6-1.3); POTASSIUM 3.4 mmol/L (3.5-5.1); TOTAL BILIRUBIN 0.9 mg/dL (<0.1-1.0); TOTAL PROTEIN 6.3 g/dL (6.4-8.2)
[2019-05-09 04:04] LABS: TROPONIN-I LEVEL 0.88 ng/mL (<0.06)
--- NOTE | 2019-05-09 05:33 | NUR ---
PT PROGRESSING TOWARDS GOAL APPROPRIATELY. PT HAD AWOKE THIS AM WITH NAUSEA,DRY HEAVING. PT GIVEN CLEAR SODA, WALKED TO BR AND QUICKLY FELT RELIEF. PT HAS NO FURTHER COMPLAINTS AND IS NOW RESTING COMFORTABLY. CALL LIGHT WITHIN REACH
[2019-05-09 08:00] VITALS: BP 160/71
[2019-05-09] MEDS ORDERED: NITROGLYCERIN0.4 MG SUBLING (09:55)
[2019-05-09 10:39] VITALS: BP 149/65
--- NOTE | 2019-05-10 11:31 | D ---
[address] [address] DISCHARGE SUMMARY Name: OLEGARIO BARRETT Room: [address] Angel Johnston#: [id number] Admission: 05/08/19 Attend Phys: Kodak Lind MD, Discharge: 05/09/19 Date of : 45 Report #: [id number] THIS REPORT FOR: //name// CC: Kodak Stilesa Logan DATE OF SERVICE: 05/09/2019 HISTORY OF PRESENT ILLNESS AND HOSPITAL COURSE: The patient is a pleasant 72-year-old female who presented approximately 2 weeks ago with acute coronary syndrome. In that context, cardiac catheterization was performed. She had high-grade proximal and mid LAD stenosis as well as high-grade calcified mid circumflex stenosis. I performed percutaneous coronary intervention of the LAD with angioplasty, atherectomy and stenting of the proximal and mid LAD with a good angiographic result. In a staged fashion, I performed recatheterization on 05/08/2019, which revealed widely patent proximal and mid LAD stents. I then approached the high-grade mid circumflex disease. I stented the bifurcation of the circumflex, deploying 1 drug-eluting stent in the posterior division, 1 in the prominent marginal at the bifurcation site. I placed a third drug-eluting stent in the circumflex just proximal to the bifurcation. There was a good angiographic result with 0% first marginal and 10% posterior division residual narrowing following stent deployment and ELISEO 3 flow to the distal vessel. Troponin isela inconsequentially to 0.88. The patient did well post-procedurally without chest discomfort. She ambulated in the hallways without difficulty and there was good hemostasis at the right femoral site of catheterization. Laboratory on 05/09/2019 revealed a sodium of 141, potassium 3.4, BUN 8, creatinine 0.6, glucose 93. Hemoglobin 12.4, white blood cell count 9100 with 153,000 platelets. DISCHARGE MEDICATIONS: The patient was discharged to home on 05/09/2019 on the following medications: Aspirin 81 mg daily, atorvastatin 80 mg each day at bedtime, cholecalciferol 2000 units daily, Xalatan eyedrops one drop in each eye at bedtime, lisinopril 10 mg daily, metoprolol tartrate 12.5 mg b.i.d., Centrum Silver one tablet daily, oxybutynin 5 mg daily, ticagrelor or Brilinta 90 mg b.i.d., hydrocodone/acetaminophen 1 tablet every 4-6 hours as needed for pain as well as p.r.n. sublingual nitroglycerin. I will plan to see the patient in followup in 4-6 weeks. Therefore, the patient is discharged [place] [address] DISCHARGE SUMMARY Name: OLEGARIO BARRETT Room: [address] Angel Johnston#: [id number] Admission: 05/08/19 Attend Phys: Kodak Lind MD, Discharge: 05/09/19 Date of : 45 Report #: [id number] aforementioned medications with followup as iterated above. FINAL DISCHARGE DIAGNOSES: 1. Unstable angina. 2. Coronary artery disease. 3. Status post percutaneous coronary intervention. 4. Hypertension. 5. Hypercholesterolemia. <ELECTRONICALLY SIGNED> By: Kodak Lidn MD, FACC 05/10/19 1131 0923 0934Kodak Lind MD, FACC /nt
--- NOTE | 2019-05-10 14:21 | EKG ---
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 <ELECTRONICALLY SIGNED> By: Arben Mansfield MD, FACC 05/10/19 1421 0854 0854 Arben Mansfield MD, FAC /EPI
--- NOTE | 2019-05-12 16:40 | CARD ---
[address] [address] CARDIAC CATH REPORT Name: OLEGARIO BARRETT Room: [address] Angel Johnston#: [id number] Admission: 05/08/19 Attend Phys: Kodak Lind MD, Discharge: 05/09/19 Date of : 45 Report #: [id number] THIS REPORT FOR: //name// APPROVED REPORT Study performed: 05/08/2019 07:48:17 Patient Details The patient is a 73 year-old female Event Personnel Kodak Lind Instrument Fitter, Winnie Moe, Tank Allen Scrub, Yolanda Cuellar RTR Monitor Procedures Performed Art Access - R femoral artery PAVAN Place w/wo Plasty Single CIRC PAVAN Place w/wo Plasty Addl BR OM 2 DESADDL Hemostasis w/ Angioseal Indication Unstable angina Risk Factors Hypercholesterolemia, Hypertension Previous Procedures/Diagnoses Previous PCI Admission/Lab Medications/Medications given during procedure Angiomax bolus and infusion Procedure Narrative The patient was brought electively to the Cardiac Catheterization Laboratory and was prepped and draped in a sterile manner. The right femoral was infiltrated with 2% Lidocaine subcutaneous anesthesia. A 6 Burundian sheath was inserted into the right femoral artery. Coronary angiography was performed using coronary diagnostic catheters. The left coronary system was accessed and visualized with a JL 4 6f catheter. The left ventricle was accessed and visualized with a PIG 6f catheter. Left ventricular/Aortic Valve gradient assessed via catheter pullback. Closure device was deployed with a Fr Angioseal STS 6Fr. The patient tolerated the procedure well and there were no complications associated with the procedure. A hematoma occurred. [address] [address] CARDIAC CATH REPORT Name: OLEGARIO BARRETT Room: [address] Angel Johnston#: [id number] Admission: 05/08/19 Attend Phys: Kodak Lind MD, Discharge: 05/09/19 Date of : 45 Report #: [id number] Intraoperative Conscious Sedation Sedation start time: 943 Case end Time: 1126 Fentanyl 25 mcg Versed 2 mg Fluoro Time: 33.6 minutes Dose: DAP [id number] cGycm2 3190 mGy Contrast Type and Amount: Visipaque 500 ml Diagnostic Cath Left Main 0% narrowing LAD 0% proximal narrowing at a stented site with 10-20% mid vessel narrowing at the stented site Circumflex 70% mid vessel narrowing followed by a 90% heavily calcified mid vessel stenosis with 70% ostial prominent second marginal narrowing Right Coronary 90% tubular narrowing in the midportion of this nondominant vessel as previously defined Hemodynamics The aortic pressure is 166/46 mmHg with a mean of 88 mmHg. The left ventricular pressure is 153/1 mmHg with a mean of mmHg. The left ventricular end diastolic pressure is 16 mmHg. PCI Technique Lesion Anticoagulation was achieved with Angiomax. Patient was preloaded with Angiomax. Percutaneous coronary intervention was performed on the mid circumflex artery segment. The lesion stenosis prior to intervention was 90% with ELISEO 3 flow. A 6FR XB 3.5 100CM Guide Catheter was used to engage the left ostium. A IG: BMW 190cm Interventional Guidewire was used to cross the lesion. BALLOON DILATION A Balloon catheter Mini Trek RX 2.0 X 12 was inserted and inflated up to 14.00atm for 10seconds. Additional Inflation: 18.00atm for 10seconds. Additional Inflation: 18.00atm for 9seconds. NC Trek 2.25 x 12 inflated for 12 sec @ 18 jeimy, 10 sec @ 22 jeimy, and 12 sec @ 24 jeimy STENT DEPLOYMENT A drug-eluting stent Zack Resolute 2.25X8 was inserted and inflated up to 12.00atm for 8seconds. Additional Inflation: 14.00atm for 7seconds. Biotronik Orsiro 2.75 x 15 inflated up to 10 sec @ 12 jeimy and 10 sec @ 14 jeimy; ; this was placed in the mid circumflex just proximal [place] [address] CARDIAC CATH REPORT Name: OLEGARIO BARRETT Room: [address] Angel Johnston#: [id number] Admission: 05/08/19 Attend Phys: Kodak Lind MD, Discharge: 05/09/19 Date of : 45 Report #: [id number] POST STENT DEPLOYMENT BALLOON DILATION A Balloon catheter Trek RX 2.25 X 8 was inserted and inflated up to 10.00atm for 27seconds. Additional Inflation: 12.00atm for 29seconds. NC Trek 2.5 x 12 inflated for 10 sec @ 20 jeimy NC Euphora 3.0 x12 inflated for 8 sec @ 16 jeimy and 9 sec @ 16 jeimy Final angiography reveals 10 % stenosis with ELISEO 3 flow. COMMENTS This procedure was complex because of extreme calcification and a bifurcation lesion in the mid circumflex requiring significant lesion preparation, bifurcation stenting and kissing balloon technique to finalize the procedure PCI Technique Lesion 2 Percutaneous Coronary Intervention was performed on the second obtuse marginal branch segment. Patient was preloaded with Angiomax. A 6FR XB 3.5 100CM Guide Catheter was used to engage the left ostium. A IG: ProwaterFlex 180CM Interventional Guidewire was used to cross the lesion. Balloon Dilation A Balloon catheter NC Trek RX 2.5 X 8 was inserted and inflated up to 16.00atm for 10seconds. Additional Inflation: 18.00atm for 6seconds. NC Trek 2.5 X 12 inflated for 10 sec @ 14 jeimy, and 9 sec @ 16 jeimy Mini Trek RX 1.5 x 8 inflated for 9 sec @ 16 jeimy and 7 sec @ 16 jeimy NC Trek 2.5 x 8 inflated for 7 sec @ 15 jeimy, 5 sec @ 17 jeimy, and 7 sec @ 18 jeimy Stent Deployment A drug-eluting stent Biotronik Orsiro 2.25 x 9 was inserted and inflated up to 10.00atm for 6seconds. Additional Inflation: 12.00atm for 6seconds. Post Stent Deployment Balloon Dilation A Balloon catheter NC Trek RX 2.5 X 8 was inserted and inflated up to 8.00atm for 26seconds. Additional Inflation: 10.00atm for 29seconds. Conclusion #1 coronary artery disease characterized by the following: A widely patent proximal LAD stent with 10-20% mid LAD narrowing [address] [address] CARDIAC CATH REPORT Name: OLEGARIO BARRETT [address] [id number] Admission: 05/08/19 Attend Phys: Kodak Lind MD, Discharge: 05/09/19 Date of : 45 Report #: [id number] B dominant circumflex with tandem 70 and 90% mid vessel stenosis, the latter being heavily calcified with 70% ostial second marginal narrowing at a bifurcation site C nondominant right coronary artery with 90% tubular mid vessel narrowing #2 mild systemic systolic hypertension with mild elevation of left ventricular end diastolic pressure at rest #3 successful percutaneous coronary intervention with deployment of sequential drug-eluting stents in the mid circumflex with 10% residual narrowing following stent deployment #4 successful percutaneous coronary intervention with deployment of drug-eluting stent at the ostium of the second marginal branch with 0% residual narrowing; this required kissing balloon inflations in the mid circumflex and second marginal branch to finalize the procedure Recommendations Cardiac Risk Reduction Program Aggressive Medical Therapy Medications Administered Ticagrelor Diagnostic Cath Approved by: Kodak Lind MD Date/Time: 05/12/2019 16:37:36 <ELECTRONICALLY SIGNED> By: Kodak Lind MD, FACC 05/12/19 1640 1640 1640Joramses Lind MD, FACC /INF
== END 2019-05-09 11:07 | disposition home or self-care (01) ==
LOC: M.CL 07:23 → M.TBA-CV 11:47 → M.2W 15:32
PROVIDERS: ADMIT Internal Medicine
DX: I25.110 Atherosclerotic heart disease of native coronary artery with unstable angina pectoris (principal); I10 Essential (primary) hypertension; E78.00 Pure hypercholesterolemia, unspecified; Z23 Encounter for immunization

== ENCOUNTER 2019-05-20 07:07 | Emergency (ER) | payer OTHER ==
[~2019-05-20] VITALS: Ht 167.6 cm; Wt 56.7 kg
[~2019-05-20 07:07] MED LIST changes: +NITROGLYCERIN0.4 MG SUBLING
[2019-05-20 07:22] VITALS: BP 156/89
[2019-05-20 07:27] LABS: URINE BILIRUBIN NEGATIVE (Negative); URINE BLOOD TRACE (Negative); URINE CLARITY CLEAR; URINE COLOR YELLOW; URINE GLUCOSE-RANDOM NEGATIVE (Negative); URINE KETONES NEGATIVE (Negative); URINE LEUKOCYTES-REFLEX 1+ (Negative); URINE NITRITE-REFLEX NEGATIVE (Negative); URINE PROTEIN NEGATIVE (Negative); URINE SPECIFIC GRAVITY <= 1.005 (1.005-1.030); URINE UROBILINOGEN 0.2 E.U./dl (0.2-1.0)
[2019-05-20 07:35] LABS: BACTERIA-REFLEX 1-9 Few /HPF (None Seen); CASTS None Seen /LPF (None Seen); CRYSTALS None Seen /LPF (None Seen); MUCUS None Seen strn/LPF (None Seen); SQUAMOUS 4-10 Moderate /LPF (0-3); URINE RBC 3-10 Few /HPF (0-2); URINE WBC-REFLEX 0-5 Rare /HPF (0-5)
[2019-05-20 07:35] LABS: ABSOLUTE BASOPHILS 0.1 thou/uL (0.0-0.2); ABSOLUTE EOSINOPHILS 0.3 thou/uL (0.0-0.7); ABSOLUTE LYMPHOCYTES 1.3 thou/uL (0.8-5.3); ABSOLUTE MONOCYTES 0.9 thou/uL (0.0-1.2); BASOPHILS 0.9 %; EOSINOPHILS 3.8 %; HEMATOCRIT 39.7 % (37.0-47.0); HEMOGLOBIN 13.4 gm/dL (12.0-15.0); LYMPHOCYTES 14.7 %; MCH 31.3 pg (26.0-34.0); MCHC 33.6 g/dL (28.0-37.0); MCV 93.1 fL (80.0-100.0); MONOCYTES 10.8 %; MPV 9.2 fl. (7.2-11.1); NUCLEATED RBCS 0 /100WBC; PLATELET COUNT* 239 thou/uL (150-400); POLYS 69.8 %; RBC 4.26 mil/uL (4.20-5.00); WBC 8.6 thou/uL (4.0-11.0)
[2019-05-20 07:44] LABS: CALCIUM 10.1 mg/dL (8.5-10.1); CREATININE 0.8 mg/dL (0.6-1.3); POTASSIUM 3.8 mmol/L (3.5-5.1)
[2019-05-20 07:48] LABS: TOTAL BILIRUBIN 0.5 mg/dL (<0.1-1.0); TOTAL PROTEIN 7.9 g/dL (6.4-8.2)
--- NOTE | 2019-05-20 08:48 | EKG ---
[place] [address] ELECTROCARDIOGRAM REPORT Name: OLEGARIO BARRETT Room: [facility]#: [id number] Admission: 05/20/19 Attend Phys: Discharge: Date of : 45 Report #: [id number] THIS REPORT FOR: //name// [facility] ED Test Date: 2019-05-20 Test Time: 07:37:21 Pat Name: OLEGARIO BARRETT Department: Room: Gender: F Chute Tender: REAGAN : 1945 Requested By: Guille Castro Order Number: [id number] MD: Gaston Polanco Measurements Intervals [place] Rate: 55 P: 48 [place]: 164 QRS: -17 QRSD: 95 T: 33 QT: 447 QTc: 428 Interpretive Statements Sinus rhythm Borderline left axis deviation Possible anteroseptal infarct, old Compared to ECG 05/09/2019 08:54:46 No significant changes Electronically Signed On 05-20-2019 8:47:46 CDT by Gaston Polanco [email or web address] <ELECTRONICALLY SIGNED> By: Gaston Polanco MD, [facility] 05/20/19 0847 0737 6 Gaston Polanco MD, FACC /EPI
[2019-05-20 10:06] VITALS: BP 177/76
== END 2019-05-20 10:07 | disposition home or self-care (01) ==
LOC: M.ERS 07:07 → M.TBA-ER 09:18 → M.ERS 09:18
PROVIDERS: Family Medicine
DX: K59.00 Constipation, unspecified (principal); I10 Essential (primary) hypertension; I25.10 Atherosclerotic heart disease of native coronary artery without angina pectoris; K21.9 Gastro-esophageal reflux disease without esophagitis; Z91.040 Latex allergy status; Z88.8 Allergy status to other drugs, medicaments and biological substances; Z91.011 Allergy to milk products; Z90.711 Acquired absence of uterus with remaining cervical stump

== ENCOUNTER 2019-07-21 22:51 | Emergency (ER) | payer OTHER ==
[~2019-07-21] VITALS: Ht 170.2 cm; Wt 61.2 kg
[2019-07-21 23:27] LABS: ABSOLUTE BASOPHILS 0.1 thou/uL (0.0-0.2); ABSOLUTE EOSINOPHILS 0.3 thou/uL (0.0-0.7); ABSOLUTE LYMPHOCYTES 2.1 thou/uL (0.8-5.3); ABSOLUTE NEUTROPHILS 5.3 thou/uL (1.6-8.1); BASOPHILS 1.1 %; EOSINOPHILS 2.9 %; HEMOGLOBIN 12.9 gm/dL (12.0-15.0); LYMPHOCYTES 23.5 %; MCH 31.1 pg (26.0-34.0); MCHC 33.9 g/dL (28.0-37.0); MCV 91.6 fL (80.0-100.0); MONOCYTES 11.4 %; MPV 9.9 fl. (7.2-11.1); NUCLEATED RBCS 0 /100WBC; PLATELET COUNT* 185 thou/uL (150-400); POLYS 61.1 %; RBC 4.15 mil/uL (4.20-5.00); RDW-CV 14.2 % (10.5-14.5); WBC 8.7 thou/uL (4.0-11.0)
[2019-07-21 23:29] LABS: URINE BILIRUBIN NEGATIVE (Negative); URINE BLOOD 1+ (Negative); URINE CLARITY CLEAR; URINE COLOR YELLOW; URINE GLUCOSE-RANDOM NEGATIVE (Negative); URINE KETONES NEGATIVE (Negative); URINE NITRITE-REFLEX NEGATIVE (Negative); URINE PROTEIN NEGATIVE (Negative); URINE UROBILINOGEN 0.2 E.U./dl (0.2-1.0)
[2019-07-21 23:38] LABS: URINE LEUKOCYTES-REFLEX 2+ (Negative)
[2019-07-21 23:53] LABS: PROTIME 10.7 Seconds (9.20-11.50)
[2019-07-21 23:56] LABS: CALCIUM 9.6 mg/dL (8.5-10.1); CREATININE 0.8 mg/dL (0.6-1.3); POTASSIUM 3.1 mmol/L (3.5-5.1)
[2019-07-22 00:07] LABS: ALBUMIN 3.9 g/dL (3.4-5.0); TOTAL BILIRUBIN 0.4 mg/dL (<0.1-1.0); TOTAL PROTEIN 7.9 g/dL (6.4-8.2)
[2019-07-22 00:31] LABS: CASTS None Seen /LPF (None Seen); SQUAMOUS 4-10 Moderate /LPF (0-3)
[2019-07-22 00:32] LABS: BACTERIA-REFLEX None Seen /HPF (None Seen); URINE RBC 0-2 Rare /HPF (0-2); URINE WBC-REFLEX 0-5 Rare /HPF (0-5)
[2019-07-22 00:47] LABS: CRYSTALS None Seen /LPF (None Seen)
[2019-07-22] MEDS ORDERED: PREDNISONE50 MG PO (02:33)
[2019-07-22] MEDS ORDERED: PROAIR HFA8.5 GM INH (02:33)
[2019-07-22] MEDS ORDERED: MOTION RELIEF25 MG PO (02:33)
[2019-07-22 02:47] VITALS: BP 152/73
--- NOTE | 2019-07-22 09:46 | EKG ---
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: [place] : 1945 Requested By: Devika Hammonds Order Number: [id number] MD: Shaji Ford Measurements Intervals [place] Rate: 66 P: 28 [place]: 169 QRS: -14 QRSD: 91 T: 44 QT: 405 QTc: 425 Interpretive Statements Sinus rhythm poor r wave progression Probable left atrial enlargement Compared to ECG 05/20/2019 07:37:21 no change Electronically Signed On 07-22-2019 9:45:39 FOOD AND BEVERAGE OUTLETS MANAGER by Shaji Ford [email or web address] <ELECTRONICALLY SIGNED> By: Shaji Ford MD, [facility] 07/22/19 0945 2255 54 Shaji Ford MD, FACC /EPI
== END 2019-07-22 02:47 | disposition home or self-care (01) ==
LOC: M.ERS 22:51
PROVIDERS: Emergency Medicine
DX: J06.9 Acute upper respiratory infection, unspecified (principal); R42 Dizziness and giddiness; I10 Essential (primary) hypertension; I25.10 Atherosclerotic heart disease of native coronary artery without angina pectoris; K21.9 Gastro-esophageal reflux disease without esophagitis; Z90.711 Acquired absence of uterus with remaining cervical stump; Z95.5 Presence of coronary angioplasty implant and graft; V89.2XXA Person injured in unspecified motor-vehicle accident, traffic, initial encounter; Y93.89 Activity, other specified; Y92.89 Other specified places as the place of occurrence of the external cause; Y99.8 Other external cause status

== ENCOUNTER → 2019-10-24 | Outpatient (CLI) | payer OTHER ==
[~2019-10-24] MED LIST changes: +MOTION RELIEF25 MG PO; +PREDNISONE50 MG PO; +PROAIR HFA8.5 GM INH
== END ==
LOC: M.ULTRA 07:05
DX: I65.23 Occlusion and stenosis of bilateral carotid arteries (principal)

== ENCOUNTER → 2020-02-02 | Outpatient (CLI) | payer OTHER | LOC: M.RAD 15:08 | PROVIDERS: ATTEND Family Medicine | DX: M19.071 Primary osteoarthritis, right ankle and foot (principal); M79.671 Pain in right foot ==

== ENCOUNTER → 2020-06-02 | Outpatient (CLI) | payer OTHER | LOC: M.RAD 08:35 | PROVIDERS: ATTEND Family Medicine | DX: M81.0 Age-related osteoporosis without current pathological fracture (principal) ==

== ENCOUNTER 2020-09-26 09:45 | Inpatient (IN) | payer OTHER ==
[~2020-09-26] VITALS: Ht 162.6 cm; Wt 53.5 kg
[2020-09-26 09:48] VITALS: BP 139/61
[2020-09-26] MEDS ORDERED: PLAVIX 75 MG TA75 MG PO (09:54)
[2020-09-26] MEDS ORDERED: FISH OIL 1,0001 EAC9 PO (09:54)
[2020-09-26 10:09] LABS: ABSOLUTE BASOPHILS 0.1 thou/uL (0.0-0.2); ABSOLUTE EOSINOPHILS 0.3 thou/uL (0.0-0.7); ABSOLUTE LYMPHOCYTES 1.8 thou/uL (0.8-5.3); ABSOLUTE MONOCYTES 0.7 thou/uL (0.0-1.2); ABSOLUTE NEUTROPHILS 4.7 thou/uL (1.6-8.1); BASOPHILS 1.2 %; EOSINOPHILS 4.1 %; HEMATOCRIT 38.5 % (37.0-47.0); LYMPHOCYTES 24.2 %; MCH 31.4 pg (26.0-34.0); MCHC 33.8 g/dL (28.0-37.0); MCV 93.1 fL (80.0-100.0); MONOCYTES 9.1 %; MPV 9.3 fl. (7.2-11.1); NUCLEATED RBCS 0 /100WBC; PLATELET COUNT* 193 thou/uL (150-400); POLYS 61.4 %; RBC 4.14 mil/uL (4.20-5.00); RDW-CV 13.4 % (10.5-14.5); WBC 7.6 thou/uL (4.0-11.0)
[2020-09-26 10:15] LABS: CALCIUM 9.3 mg/dL (8.5-10.1); CREATININE 0.8 mg/dL (0.6-1.3); POTASSIUM 3.7 mmol/L (3.5-5.1)
[2020-09-26 10:29] LABS: ALBUMIN 3.3 g/dL (3.4-5.0); CK-MB MASS 2.2 ng/mL (<0.5-3.6); MAGNESIUM 1.9 mg/dL (1.8-2.4); TOTAL BILIRUBIN 0.7 mg/dL (<0.1-1.0); TOTAL PROTEIN 6.8 g/dL (6.4-8.2)
[2020-09-26 10:34] LABS: APTT 23.6 Seconds (25.0-31.3); PROTIME 10.9 Seconds (9.20-11.50)
--- NOTE | 2020-09-26 10:49 | NUR ---
RT IN PATIENTS ROOM GIVING BREATHING TREATMENT. PT ALSO GIVEN A WARM BLANKET. PT RR IS EVEN AND UNLABORED. PT ON THE BED ROCKING BACK AND FORTH CRYING THAT SHE DOES NOT HAVE A "DNR".
[2020-09-26 12:33] VITALS: BP 146/68
[2020-09-26 12:39] VITALS: BP 136/86
[2020-09-26 16:00] VITALS: BP 139/60
[2020-09-26 20:00] VITALS: BP 144/66
--- NOTE | 2020-09-26 20:14 | NUR ---
Pt admitted today from ER. Denies CP since admission. SB per monitor, VSS. No complaints. Will be NPO after MN for Cardiology consult tomorrow. Encouraged to call if any CP/complaints. Will continue to monitor.
[2020-09-27] VITALS (23 sets, daily range): BP systolic 35–1135; BP diastolic 57–82
[2020-09-27 04:32] LABS: ABSOLUTE BASOPHILS 0.1 thou/uL (0.0-0.2); ABSOLUTE EOSINOPHILS 0.4 thou/uL (0.0-0.7); ABSOLUTE LYMPHOCYTES 2.5 thou/uL (0.8-5.3); ABSOLUTE MONOCYTES 0.8 thou/uL (0.0-1.2); ABSOLUTE NEUTROPHILS 4.4 thou/uL (1.6-8.1); BASOPHILS 1.2 %; EOSINOPHILS 5.3 %; HEMATOCRIT 36.9 % (37.0-47.0); HEMOGLOBIN 12.4 gm/dL (12.0-15.0); MCH 31.1 pg (26.0-34.0); MCHC 33.7 g/dL (28.0-37.0); MCV 92.3 fL (80.0-100.0); MONOCYTES 9.8 %; MPV 9.3 fl. (7.2-11.1); NUCLEATED RBCS 0 /100WBC; PLATELET COUNT* 180 thou/uL (150-400); POLYS 53.7 %; RDW-CV 13.2 % (10.5-14.5); WBC 8.3 thou/uL (4.0-11.0)
[2020-09-27 04:41] LABS: CALCIUM 9.6 mg/dL (8.5-10.1); CREATININE 0.7 mg/dL (0.6-1.3); POTASSIUM 3.6 mmol/L (3.5-5.1)
--- NOTE | 2020-09-27 07:43 | NUR ---
ASSUMED CARE OF PT AFTER REPORT AT 1930. PT A&OX4. VSS. PHYSICAL ASSESSMENT COMPLETED AND CHARTED. PT ON RA. PT TRACING SR/SB ON TELE. PT UPADLIB TO RESTROOM. PT DENIES ANY PAIN. PT ABLE TO SLEEP WELL ON BED. CALL LIGHT WITHIN REACH.
--- NOTE | 2020-09-27 11:10 | EKG ---
[place] [address] ELECTROCARDIOGRAM REPORT Name: OLEGARIO BARRETT Room: [address]#: [id number] Admission: 09/26/20 Attend Phys: Oc Dubois, Discharge: Date of : 45 Date of Service: 09/26/20 0949 Report #: [id number] THIS REPORT FOR: //name// [facility] ED Test Date: 2020-09-26 Test Time: 09:49:39 Pat Name: OLEGARIO BARRETT Department: Room: [facility] Gender: F Qa Developer: CCD : 1945 Requested By: Guille Castro Order Number: [id number] MD: Shaji Ford Measurements Intervals [place] Rate: 70 P: -44 [place]: 146 QRS: -29 QRSD: 87 T: 33 QT: 399 QTc: 431 Interpretive Statements Sinus rhythm Inferior infarct, old Probable anteroseptal infarct, old Compared to ECG 07/21/2019 22:55:53 no change Electronically Signed On 09-27-2020 11:10:31 SEWER SEPARATION DESIGNER by Shaji Ford [email or web address] <ELECTRONICALLY SIGNED> By: Shaji Ford MD, FAC 09/27/20 1110 0949 0949 Shaji Ford MD, [facility] /EPI
--- NOTE | 2020-09-27 13:48 | CON ---
[address] [address] CONSULTATION Name: OLEGARIO BARRETT Room: [address] ADM IN M.R.#: [id number] Admission: 09/27/20 Attend Phys: Oc Dubois MD Discharge: Date of : 45 Report #: [id number] THIS REPORT FOR: cc: Clair Logan Linda J. DO Shaji Ford MD [facility] DATE OF SERVICE: 09/27/2020 CARDIOLOGY CONSULTATION HISTORY OF PRESENT ILLNESS: The patient is a 75-year-old white female who I was asked to see in the hospital today after she complained of chest pain. The patient has an extensive and complicated past medical history. 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 In 2019, she had stenting of her LAD and circumflex by my partner, Dr. Lind. Recently, she has been doing well with no significant chest pain. Unfortunately, she continues to smoke a pack of cigarettes a day and does get short of breath on exertion and has a chronic cough. She was doing well until 2 nights ago, she awakened at 2 in the morning with the pain in her back, went in her chest. She felt somewhat short of breath and no nausea or diaphoresis. The pain resolved and then came back. She took a nitroglycerin. This seemed to help. Her brought her to the Emergency Room where she is admitted for further evaluation and treatment. She has had no further chest pain since that time. She denied the pain being related to taking a deep breath or coughing. It was not related to food. She had no belching or blood in her stool. She denied any trauma to her chest pain. It is not related to lifting. PAST MEDICAL HISTORY: She had previous cataract extraction, hernia repair, hysterectomy, skin cancer removal, hypertension, hyperlipidemia. MEDICATIONS: Include Lipitor, Plavix, lisinopril, oxybutynin. She uses inhaler as needed. ALLERGIES: She has no known drug allergies. FAMILY HISTORY: Mother had heart disease. SOCIAL HISTORY: She is . She and her live in [place]. She still works at [employer]. No history of alcohol abuse. REVIEW OF SYSTEMS: She has no history of stroke. She has COPD. No history of liver disease, kidney disease, chronic skin condition. She does have chronic bronchitis. She wears glasses. She is hard of hearing[place] [address] CONSULTATION Name: OLEGARIO BARRETT Room: [address]#: [id number] Admission: 09/27/20 Attend Phys: Oc Dubois MD Discharge: Date of : 45 Report #: [id number] PHYSICAL EXAMINATION: GENERAL: Revealed an elderly female, appeared in no distress. VITAL SIGNS: Blood pressure is 140/70, pulse is 60. She was afebrile. HEENT: She was anicteric. Conjunctivae pink. Mucous membranes are moist. NECK: Veins nondistended. No carotid bruits. CHEST: Revealed a prolonged expiratory phase of breathing. CARDIOVASCULAR: Regular rate and rhythm without murmur or rub. ABDOMEN: Soft. EXTREMITIES: Had no edema. Dorsalis pedis pulse 2+ bilaterally. SKIN: Cool and dry. NEUROLOGIC: Nonfocal. RADIOLOGICAL DATA: Her ECG on admission showed a sinus rhythm, poor R-wave progression, nonspecific T-wave changes. Her workup, she had a portable chest x-ray that showed cardiomegaly, hyperinflated lung galindo. Carotid Doppler study performed a year ago showed moderate plaquing bilateral. She had a nuclear stress test performed in 11/2018 that showed ejection fraction of 61%. Inferolateral and apical photopenia but no reversible defects. LABORATORY WORK: Sodium 140, creatinine 0.7. Troponin 0.06. Her white blood cell count 8.3, hemoglobin 12.4. IMPRESSION AND RECOMMENDATIONS: 1. Possible unstable angina. Recommend repeat cardiac catheterization. 2. Coronary artery disease. Previous stenting. The patient is on Plavix. 3. Chronic obstructive pulmonary disease with chronic bronchitis. 4. Tobacco abuse. 5. Hypertension. The patient is on JOSESITO inhibitor. 6. Hyperlipidemia. The patient is on a statin drug. <ELECTRONICALLY SIGNED> By: Shaji Ford MD, FACC 09/27/20 1348 0841 [id number] Ford MD, FACC /nt
--- NOTE | 2020-09-27 14:08 | EKG ---
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: : 1945 Requested By: Shaji Ford Order Number: [id number] Reading MD: Shaji Ford Measurements Intervals [place] Rate: 52 P: -42 GA: 153 QRS: -33 QRSD: 97 T: 48 QT: 444 QTc: 413 Interpretive Statements Sinus bradycardia left axis Inferior infarct, old Probable anteroseptal infarct, old Compared to ECG 09/26/2020 09:49:39 No significant changes Electronically Signed On 09-27-2020 14:08:44 MARKETING PRODUCTION SPECIALIST by Shaji Ford [email or web address] <ELECTRONICALLY SIGNED> By: Shaji Ford MD, [facility] 09/27/20 1408 1333 1333 Shaji Ford MD, [facility] /EPI
--- NOTE | 2020-09-27 14:38 | CARD ---
[address] [address] CARDIAC CATH REPORT Name: OLEGARIO BARRETT Room: [address] ADM IN [facility]#: [id number] Admission: 09/27/20 Attend Phys: Oc Duobis MD Discharge: Date of : 45 Report #: [id number] THIS REPORT FOR: cc: Clair Logan Linda J. DO ~ Shaji Ford MD [facility] APPROVED REPORT Study performed: 09/27/2020 08:53:35 Patient Details Patient Status: In-Patient Room #: 205 The patient is a 75 year-old female Event Personnel Shaji Ford Logging Rafter Laborer, Eusebio Pineda RN Boot Maker, Nima iRvas RTR Scrub, Radha Song RTR Monitor Procedures Performed Art Access - R radial artery , Left Heart Cath w/or w/o Coronaries [id number] [facility] , [address] w/wo Plasty Single CIRC [id number], Hemostasis with Hemoband Indication Abnormal ECG, Chest pain Risk Factors Chronic Lung Disease, Coronary Artery DiseaseHypertension, Tobacco History () Previous Procedures/Diagnoses Previous PCI, Previous VT Admission/Lab Medications/Medications given during procedure Heparin Unfract., Nitroglycerin IA 400 mcg total, Verapamil IA 5 mg total, Heparin IV 7500 units total, Nitroglycerin IC 200 mcg Procedure Narrative The patient was brought electively to the Cardiac Catheterization Laboratory and was prepped and draped in a sterile manner. The right wrist was infiltrated with 1% Lidocaine subcutaneous anesthesia. A 6F Slender [place] sheath was inserted into [place] [address] CARDIAC CATH REPORT Name: NENAOLEGARIO AXEL Room: [address] IN [facility]#: [id number] Admission: 09/27/20 Attend Phys: Oc Dubois MD Discharge: Date of : 45 Report #: [id number] Coronary angiography was performed using coronary diagnostic catheters. The right coronary system was accessed and visualized with a 6F JR4 catheter. The left coronary system was accessed and visualized with a 6F JL4 catheter. The left ventricle was accessed and visualized with a 6F Pigtail catheter. Left ventricular/Aortic Valve gradient assessed via catheter pullback. Left ventriculogram was performed in ZUÑIGA projection. Closure device was deployed with a 6 Fr Vasc-Band Reg 24cm. The patient tolerated the procedure well and there were no complications associated with the procedure. There was no hematoma. Intraoperative Conscious Sedation Sedation start time: 10:00 Case end Time: 10:37 No sedation given. Fluoro Time: 5.3 minutes Dose: DAP 34120 cGycm2 723 mGy Contrast Type and Amount: Visipaque 120 ml Coronary Angiography The patient's coronary anatomy is left dominant. Diagnostic Cath Left Main 0% stenosis LAD 40% ostial stenosis. Proximal stent had 0% restenosis, and mid stent had 50% restenosis Circumflex long stent in the proximal and mid circumflex had 0% restenosis. 90% stenosis noted beyond the posterolateral branch L LUCINDA stent with 0% restenosis Right Coronary smal nondominant RCA had a long 90% stenosis noted Ramus 0% stenosis Left Ventriculography The left ventricular ejection fraction is estimated to be 40-45%. Left ventricular wall motion abnormalities are present. There is no mitral insufficiency. mild hypokinesis noted of the distal anteroapical wall. Hemodynamics The aortic pressure is 157/60 mmHg with a mean of 98 mmHg. The left ventricular pressure is 158/10 mmHg with a mean of mmHg. The left ventricular end diastolic pressure is 14 mmHg. There was no gradient across the aortic valve upon pullback. Pullback from the left ventricle to the aorta revealed no [place] [address] CARDIAC CATH REPORT Name: OLEGARIO BARRETT Room: [address]#: [id number] Admission: 09/27/20 Attend Phys: Oc Dubois MD Discharge: Date of : 45 Report #: [id number] valve. PCI Technique Lesion Anticoagulation was achieved with Heparin. Patient was preloaded with Plavix. Percutaneous coronary intervention was performed on the distal circumflex artery segment. The lesion stenosis prior to intervention was 90% with ELISEO 3 flow. A 6FR XB 3.5 100CM Guide Catheter was used to engage the lm ostium. A BMW 190cm Interventional Guidewire was used to cross the lesion. BALLOON DILATION A Balloon catheter NC Euphora 2.5x8 was inserted and inflated up to 20.00atm for 22seconds. Repeat angiography revealed the following post-dilatation results: 40% stenosis. A 2nd BMW 190 cm guidewire was advanced down the left posterolateral artery. STENT DEPLOYMENT A drug-eluting stent Zack RX Stent [id number] was inserted and inflated up to 12.00atm for 11seconds. Repeat angiography revealed the following post-stent deployment results: 0% stenosis. Final angiography reveals 0 % stenosis with ELISEO 3 flow. Conclusion 1. no significant restenosis noted of stents in the LAD and circumflex artery. 2. 90% proximal stenosis noted of the smal nondominant RCa 3. 90% stenosis noted of the distal circumfles artery. 4. LVEF 40-45% 5. successful placement of a drug eluting stent in the distal circumflex artery. Recommendations Smoking Cessation <ELECTRONICALLY SIGNED> By: Shaji Ford MD, [facility] 09/27/20 1438 1438 1438Damann Ford MD, FACC /INF
--- NOTE | 2020-09-27 14:59 | NUR ---
Pt is A&O. Resides at home with her . Independent. No DME. No hx of HH or SNF. Pt had a heart cath today, stent placed, anticipate dc to home tomorrow. No needs anticipated.
--- NOTE | 2020-09-27 19:54 | NUR ---
ASSUMED PT CARE AT 0730. PT IS A&OX4,PLEASANT AND DENIES ANY DISCOMFORT AT THIS TIME. PT IS NPO PENDING CARDIAC CONSULT. ASSESSMENT COMPLETED. 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 PT RETURN TO UNIT AT APPROX 1245 AND 1 STINT PLACED WITH ENTRY THROUGHT THE R RADIAL ARTERY. 2MLS REMOVED Q15 UNTIL 13 MLS REMOVED. AREA CLEANED AND NO SIGN OF ANY BLEEDING ONLY BRUISING. VS MONITORED PER PROTOCOL AND ARE STABLE. PT DENIES ANY DISCOMFORT ONLY ANXIOUS TO GO HOME.
[2020-09-28 04:16] VITALS: BP 156/76
[2020-09-28 04:47] LABS: HEMOGLOBIN 12.5 gm/dL (12.0-15.0); MCH 30.9 pg (26.0-34.0); MCHC 33.8 g/dL (28.0-37.0); MCV 91.3 fL (80.0-100.0); RBC 4.05 mil/uL (4.20-5.00); RDW-CV 13.4 % (10.5-14.5); WBC 9.3 thou/uL (4.0-11.0)
[2020-09-28 05:02] LABS: ANION GAP 7 mmol/L (7-16); BUN 11 mg/dL (7-18); CALCIUM 9.5 mg/dL (8.5-10.1); CHLORIDE 106 mmol/L (98-107); CHOLESTEROL 111 mg/dL (<200); CO2 24 mmol/L (21-32); CREATININE 0.7 mg/dL (0.6-1.3); GLUCOSE 91 mg/dL (70-99); HDL CHOLESTEROL 53 mg/dL (>40); LDL CHOLESTEROL 47 mg/dL (<100); POTASSIUM 3.6 mmol/L (3.5-5.1); SERUM ASSESSMENT Clear; SODIUM 137 mmol/L (136-145); TC:HDL 2.1 Ratio (Not establshd); TRIGLYCERIDE 58 mg/dL (<150); TROPONIN-I LEVEL 0.36 ng/mL (<0.06); VLDL 12 mg/dL (<40)
--- NOTE | 2020-09-28 05:39 | NUR ---
PT A&OX4, VSS ON ROOM AIR, PT UP AD MARIA GUADALUPE, SR/SB ON TELE MONITOR, IV SALINE LOCKED. NO C/O PAIN OR DISCOMFORT THIS SHIFT. PT SLEEPING WELL, WILL CONTINUE TO MONITOR.
[2020-09-28 08:00] VITALS: BP 145/75
[2020-09-28] MEDS ORDERED: ASPIR 8181 MG PO (09:34)
[2020-09-28 10:56] VITALS: BP 145/75
--- NOTE | 2020-09-28 11:39 | NUR ---
RECEIVED REPORT AROUND 0715. ASSUMED CARE. VS AND ASSESSMENT CHARTED. IV INTACT LEFT AC. HEART MONITOR ATTACHED AT SR. PT ABLE TO BE UP ADLIB. RIGHT RADIAL CATH SITE CLEAN, DRY, INTACT. INSTRUCTED NOT TO LIFT HEAVIER THAN 5 TO 10LBS. DISCHARGE ORDERS RECEIVED. IV TAKEN OUT. HEART MONITOR OFF. MEDS GIVEN PER SEP. HOURLY ROUNDING. DISCHARGE PACKET GONE OVER WITH PT. COMMUNICATED UDNERSTANDING. PT LEFT UNIT VIA WHEEL CHAIR WITH NURSING AND ALL BELONGINGS AT 1110.
--- NOTE | 2020-09-28 12:49 | EKG ---
[place] [address] ELECTROCARDIOGRAM REPORT Name: NENAOLEGARIO AXEL Room: [address] DIS IN M.R.#: [id number] Admission: 09/27/20 Attend Phys: Oc Dubois, Discharge: 09/28/20 Date of : 45 Date of Service: 09/28/20902 Report #: [id number] THIS REPORT FOR: //name// [facility] Test Date: 2020-09-28 Test Time: 09:03:27 Pat Name: OLEGARIO BARRETT Department: Room: [address] Gender: F Commissioner Of Conciliation: BONNY : 1945 Requested By: Shaji Ford Order Number: [id number] Reading MD: Shaji Ford Measurements Intervals [place] Rate: 59 P: -25 NE: 144 QRS: -29 QRSD: 92 T: 13 QT: 414 QTc: 411 Interpretive Statements Sinus rhythm poor r wave progression Borderline left axis deviation Compared to ECG 09/27/2020 13:33:43 rate has increased Electronically Signed On 09-28-2020 12:49:23 PERSONNEL COORDINATOR by Shaji Ford [email or web address] <ELECTRONICALLY SIGNED> By: Shaji Ford MD, [facility] 09/28/20 1249 0903 0903 Shaji Ford MD, [facility] /EPI
== END 2020-09-28 11:10 | disposition home or self-care (01) | DRG 247 ==
LOC: M.ERS 09:45 → M.2W 10:43 → M.TBA-ER 10:43 → M.2W 12:31
PROVIDERS: Family Medicine; Internal Medicine Cardiovascular Disease; ADMIT Internal Medicine; ATTEND Internal Medicine
PROC: 4A023N7 Measurement of Cardiac Sampling and Pressure, Left Heart, Percutaneous Approach (ICD-10-PCS; principal; 2020-09-27)
PROC: 027034Z Dilation of Coronary Artery, One Artery with Drug-eluting Intraluminal Device, Percutaneous Approach (ICD-10-PCS; principal; 2020-09-27)
PROC: B215YZZ Fluoroscopy of Left Heart using Other Contrast (ICD-10-PCS; principal; 2020-09-27)
PROC: B211YZZ Fluoroscopy of Multiple Coronary Arteries using Other Contrast (ICD-10-PCS; principal; 2020-09-27)
DX: I25.110 Atherosclerotic heart disease of native coronary artery with unstable angina pectoris (principal); I10 Essential (primary) hypertension; K21.9 Gastro-esophageal reflux disease without esophagitis; E78.5 Hyperlipidemia, unspecified; J44.9 Chronic obstructive pulmonary disease, unspecified; F17.210 Nicotine dependence, cigarettes, uncomplicated; Z20.822 Contact with and (suspected) exposure to COVID-19; Z90.711 Acquired absence of uterus with remaining cervical stump; I25.2 Old myocardial infarction; Z91.040 Latex allergy status; Z88.8 Allergy status to other drugs, medicaments and biological substances; Z91.018 Allergy to other foods; Z79.01 Long term (current) use of anticoagulants; Z79.899 Other long term (current) drug therapy; Z95.5 Presence of coronary angioplasty implant and graft; Z98.49 Cataract extraction status, unspecified eye; Z85.828 Personal history of other malignant neoplasm of skin

== ENCOUNTER 2021-07-28 12:14 | Emergency (ER) | payer OTHER ==
[~2021-07-28] VITALS: Ht 162.6 cm; Wt 49.4 kg
[~2021-07-28 12:14] MED LIST changes: +FISH OIL 1,0001 EAC9 PO; +PLAVIX 75 MG TA75 MG PO
[2021-07-28 13:51] VITALS: BP 171/76
== END 2021-07-28 13:52 | disposition home or self-care (01) ==
LOC: M.ERS 12:14
DX: I10 Essential (primary) hypertension (principal); K21.9 Gastro-esophageal reflux disease without esophagitis; F17.210 Nicotine dependence, cigarettes, uncomplicated; Z90.711 Acquired absence of uterus with remaining cervical stump; Z79.899 Other long term (current) drug therapy; Z88.8 Allergy status to other drugs, medicaments and biological substances; Z91.040 Latex allergy status; Z91.011 Allergy to milk products

== ENCOUNTER 2021-08-08 11:16 | Emergency (ER) | payer OTHER ==
[~2021-08-08] VITALS: Ht 162.6 cm; Wt 49.4 kg
[2021-08-08] MEDS ORDERED: FLUID PILL (11:54)
--- NOTE | 2021-08-08 13:22 | EKG ---
[place] [address] ELECTROCARDIOGRAM REPORT Name: NENAOLEGARIO Room: [facility]#: [id number] Admission: 08/08/21 Attend Phys: Discharge: Date of : 45 Date of Service: 08/08/21 1154 Report #: [id number] THIS REPORT FOR: //name// [facility] ED Test Date: 2021-08-08 Test Time: 11:54:51 Pat Name: OLEGARIO BARRETT Department: Room: Gender: Verse Writer: : 1945 Requested By: Guille Castro Order Number: [id number] MD: Kodak Lind Measurements Intervals [place] Rate: 61 P: -23 NE: 156 QRS: -1 QRSD: 85 T: 86 QT: 409 QTc: 412 Interpretive Statements Sinus rhythm Atrial premature complex Left atrial enlargement Anterior infarct, old possible Nonspecific T abnormalities, lateral leads Compared to ECG 09/28/2020 09:03:27 Atrial premature complex(es) now present Atrial abnormality now present Myocardial infarct finding still possible T-wave abnormality now present Poor R-wave progression persists Electronically Signed On 08-08-2021 13:22:20 VAULT CLERK by Kodak Lind [email or web address] <ELECTRONICALLY SIGNED> By: Kodak Lind MD, [facility] 08/08/21 1322 1154 1154 Kodak Lind MD, [facility] /EPI
[2021-08-08 13:25] LABS: ABSOLUTE BASOPHILS 0.1 thou/uL (0.0-0.2); ABSOLUTE LYMPHOCYTES 1.3 thou/uL (0.8-5.3); ABSOLUTE MONOCYTES 0.6 thou/uL (0.0-1.2); ABSOLUTE NEUTROPHILS 8.5 thou/uL (1.6-8.1); BASOPHILS 0.6 %; EOSINOPHILS 0.3 %; HEMATOCRIT 44.2 % (37.0-47.0); HEMOGLOBIN 14.9 gm/dL (12.0-15.0); LYMPHOCYTES 12.7 %; MCH 31.3 pg (26.0-34.0); MCHC 33.7 g/dL (28.0-37.0); MCV 92.8 fL (80.0-100.0); MONOCYTES 5.7 %; MPV 8.8 fl. (7.2-11.1); NUCLEATED RBCS 0 /100WBC; PLATELET COUNT* 238 thou/uL (150-400); POLYS 80.7 %; RBC 4.76 mil/uL (4.20-5.00); RDW-CV 13.7 % (10.5-14.5); WBC 10.6 thou/uL (4.0-11.0)
[2021-08-08 13:34] LABS: CALCIUM 11.5 mg/dL (8.5-10.1); CREATININE 0.9 mg/dL (0.6-1.3); POTASSIUM 4.7 mmol/L (3.5-5.1)
[2021-08-08 13:39] LABS: ALBUMIN 4.3 g/dL (3.4-5.0); TOTAL BILIRUBIN 0.7 mg/dL (<0.1-1.0); TOTAL PROTEIN 8.9 g/dL (6.4-8.2)
[2021-08-08 15:17] VITALS: BP 120/70
== END 2021-08-08 15:19 | disposition home or self-care (01) ==
LOC: M.ERS 11:16
PROVIDERS: Family Medicine
DX: R42 Dizziness and giddiness (principal); R51.9 Headache, unspecified; M79.602 Pain in left arm; Z98.890 Other specified postprocedural states; I10 Essential (primary) hypertension; I25.2 Old myocardial infarction; K21.9 Gastro-esophageal reflux disease without esophagitis; I25.10 Atherosclerotic heart disease of native coronary artery without angina pectoris; R11.0 Nausea; F17.210 Nicotine dependence, cigarettes, uncomplicated; Z90.710 Acquired absence of both cervix and uterus; Z79.899 Other long term (current) drug therapy; Z91.011 Allergy to milk products; Z88.8 Allergy status to other drugs, medicaments and biological substances; Z91.040 Latex allergy status

== ENCOUNTER 2021-08-09 15:38 | Emergency (ER) | payer OTHER ==
[~2021-08-09] VITALS: Ht 162.6 cm; Wt 49.4 kg
[~2021-08-09 15:38] MED LIST changes: +FLUID PILL
[2021-08-09 19:37] VITALS: BP 142/75
== END 2021-08-09 19:37 | disposition left against medical advice (07) ==
LOC: M.ERS 15:38
DX: R11.2 Nausea with vomiting, unspecified (principal); R42 Dizziness and giddiness; Z53.21 Procedure and treatment not carried out due to patient leaving prior to being seen by health care provider